=== PATIENT | female | born 1965 | race Caucasian/White ===

== ENCOUNTER 2022-03-02 09:37 | Emergency (ER) | payer OTHER ==
[2022-03-02 11:22] LABS: CORONAVIRUS COVID-19 NAA NEGATIVE (NEGATIVE); INFLUENZA A NAA POSITIVE (NEGATIVE); INFLUENZA B NAA NEGATIVE (NEGATIVE); RESPIRATORY SYNCYTIAL VIR NAA NEGATIVE (NEGATIVE)
[2022-03-02] MEDS ORDERED: Ketorolac 60 MG/2 ML SDV IM ONE (11:29)
[2022-03-02 12:12] VITALS: BP 138/78; PULSE 82
== END 2022-03-02 12:11 | disposition home or self-care (01) ==
LOC: MW.ED 09:37
DX: J10.1 Influenza due to other identified influenza virus with other respiratory manifestations (principal); E66.9 Obesity, unspecified; Z68.32 Body mass index [BMI] 32.0-32.9, adult; Z20.822 Contact with and (suspected) exposure to COVID-19
CPT/HCPCS: 0241U; 71045; 96372; 99284; J1885

== ENCOUNTER 2023-08-07 09:21 | Day surgery (SDC) | payer OTHER ==
[~2023-08-07 09:21] MED LIST: Sodium Chloride 0.9% 10 ML Syringe FLUSH PRN; Sodium Chloride 0.9% 2.5 ML Syringe FLUSH PRN; Sodium Chloride 0.9% 20 ML SDV IV PRN; propofoL 50 ML ONE
[2023-08-07] MEDS: Lactated Ringers 1,000 ML IV SCH (09:35)
[2023-08-07] MEDS ORDERED: Lidocaine 2% 5 ML SDV ONE (09:47)
[2023-08-07 12:22] VITALS: BP 109/75; PULSE 58
== END 2023-08-07 12:25 | disposition home or self-care (01) ==
LOC: MW.SDS 09:21
PROVIDERS: ATTEND Surgery
DX: R10.32 Left lower quadrant pain (principal); G89.29 Other chronic pain; J45.909 Unspecified asthma, uncomplicated; I10 Essential (primary) hypertension; E11.9 Type 2 diabetes mellitus without complications; E66.9 Obesity, unspecified; F32.A Depression, unspecified; Z68.28 Body mass index [BMI] 28.0-28.9, adult; Z79.899 Other long term (current) drug therapy; Z87.891 Personal history of nicotine dependence
CPT/HCPCS: 45378; J2704; J7120; J3490